=== PATIENT | male | born 1995 | race Caucasian/White ===

== ENCOUNTER 2016-05-08 18:19 | Emergency (ER) | payer OTHER ==
[~2016-05-08] VITALS: Ht 160 cm; Wt 68.2 kg
[~2016-05-08 18:19] MED LIST: ABILIFY2 MG PO; PRILOSEC 20MG20 MG PO; SINGULAIR 110 MG/TAB PO; STRATTERA 25MG25 MG PO; ZYRTEC ALLERGY10 MG PO
[2016-05-08 18:20] VITALS: TEMP 98.5
[2016-05-08] MEDS ORDERED: SINGULAIR 110 MG/TAB PO (18:24)
[2016-05-08] MEDS ORDERED: NORCO 325 MG-51 TAB PO (18:48)
[2016-05-08 19:04] VITALS: BP 128/86; PULSE 101
== END 2016-05-08 19:04 | disposition home or self-care (01) ==
LOC: COL.ER 18:19
DX: T24.231A Burn of second degree of right lower leg, initial encounter (principal); T24.112A Burn of first degree of left thigh, initial encounter; X10.2XXA Contact with fats and cooking oils, initial encounter